=== PATIENT | male | born 1975 | race Caucasian/White ===

== ENCOUNTER → 2018-08-21 | Outpatient (CLI) | payer MEDICAID | LOC: COL.RAD 10:21 | DX: M25.512 Pain in left shoulder (principal) ==

== ENCOUNTER 2019-05-11 16:44 | Emergency (ER) | payer MEDICAID ==
[~2019-05-11] VITALS: Ht 188 cm; Wt 116.3 kg
[2019-05-11 16:53] VITALS: BP 133/85; TEMP 99.3
[2019-05-11] MEDS ORDERED: AMOXICILLIN 8751 TAB PO (18:28)
[2019-05-11] MEDS ORDERED: LAMICTAL200 MG PO (18:29)
[2019-05-11] MEDS ORDERED: RISPERDAL 0.5M0.5 MG PO ×2 (18:30→18:31)
[2019-05-11] MEDS ORDERED: AMITRIPTYLINE H50 M1 PO (18:30)
[2019-05-11] MEDS ORDERED: NORCO 325 MG-51 TAB PO (20:26)
[2019-05-11 20:45] VITALS: PULSE 126
== END 2019-05-11 20:45 | disposition home or self-care (01) ==
LOC: COL.ER 16:44
DX: K11.20 Sialoadenitis, unspecified (principal); F17.210 Nicotine dependence, cigarettes, uncomplicated; F31.9 Bipolar disorder, unspecified
CPT/HCPCS: J1885; Q9967